=== PATIENT | female | born 1940 | race Caucasian/White ===

== ENCOUNTER 2017-10-16 16:01 | Inpatient (IN) | payer MEDICARE ==
[2017-10-16] VITALS (9 sets, daily range): BP systolic 141–201; BP diastolic 63–98; PULSE 52–80; RESP 16–24; TEMP 97.5–100.2; O2SAT 98–100
[2017-10-16] MEDS ORDERED: DOPamine INJ PREMIX 500 ML ONE (16:07)
--- NOTE | 2017-10-16 16:31 | PD ---
HPI Chief Complaint: Code Blue Time Seen by Provider: 16:21 Travel History International Travel<30 days: No Contact w/Intl Traveler<30days: No Traveled to known affect area: No History of Present Illness HPI Currently no family at bedside (PER SHE DOES NOT GO TO DOCTORS, SO NO MEDICAL HISTORY). This patient was brought in from [facility] where apparently the heard a loud cough and then a thump so the so the went to the other room where he saw his found on the floor. At this point he called 911 and started doing CPR. EVAC upon arriving started on IV intubated 7.5 ET tube placed at about 22 at the lip. Started giving epi followed by defibrillation followed by amiodarone followed by another epi followed by another defibrillation and then Ross and return of pulses. At that point patient was placed on external pacemakers. Upon arrival patient continues to have pulses being bagged via ET tube. [facility] Social History Tobacco Use: No Allergies-Medications (Allergen,Severity, Reaction): Coded Allergies: No Known Allergies (Unverified , 10/16/17) Reported Meds & Prescriptions Reported Meds & Active Scripts Active No Active Prescriptions or Reported Medications Review of Systems ROS Limitations: Clinical Condition, Intubated Physical Exam Exam Limitations: Clinical Condition Narrative GENERAL: IN FULL DISTRESS SKIN: COLD, CLAMMY, PALE HEAD: Atraumatic. Normocephalic. EYES: Pupils 2MM, NONREACTIVE TO LIGHT, NEG CORNEAL REFLEX, NEG GAG REFLEX ENT: No nasal bleeding or discharge. PALE Mucous membranes pink and moist. NECK: Trachea midline. No JVD. 7.5 MM ETT 22 AT LIP CARDIOVASCULAR: BRADYCARDI rate and REGULAR rhythm ON EXTERNAL PACER RESPIRATORY: No SPONTANEOUS BREATHS REQUIRING FULL BVM AND PLACED ON VENT GASTROINTESTINAL: Abdomen soft, non-tender, nondistended. MUSCULOSKELETAL: Extremities without clubbing, cyanosis, or edema. No obvious deformities. NEUROLOGICAL: GCS 3T, NO SIGNS OF RESPONSIVENESS. Data Data Last Documented VS Vital Signs Date Time Temp Pulse Resp B/P (MAP) Pulse Ox O2 Delivery O2 Flow Rate FiO2 10/16/17 18:04 50 10/16/17 17:50 99 10/16/17 16:27 Ventilator 10/16/17 16:22 70 16 Orders Orders Dopamine Inj Premix (Dopamine Inj Premix (10/16/17 16:07) Electrocardiogram (10/16/17 16:21) Complete Blood Count With Diff (10/16/17 16:21) Comprehensive Metabolic Panel (10/16/17 16:21) Troponin I (10/16/17 16:21) B-Type Natriuretic Peptide (10/16/17 16:21) Prothrombin Time / Inr (Pt) (10/16/17 16:21) Act Partial Throm Time (Ptt) (10/16/17 16:21) Lipase (10/16/17 16:21) Urinalysis - C+S If Indicated (10/16/17 16:21) Thyroid Stimulating Hormone (10/16/17 16:21) Chest, Single Ap (10/16/17 16:21) Iv Access Insert/Monitor (10/16/17 16:21) Ecg Monitoring (10/16/17 16:21) Oximetry (10/16/17 16:21) Urinary Catheter Insert/Apply (10/16/17 16:21) Consult Branch Or Department Chief Librarian (10/16/17 ) (Hub Use Only)Inp Phy Cons/Ref (10/16/17 ) Sodium Bicarbonate 8.4% Inj (Sodium Bica (10/16/17 17:00) Sodium Bicarbonate 8.4% Inj (Sodium Bica (10/16/17 17:00) Sodium Bicarbonate 8.4% Inj (Sodium Bica (10/16/17 17:00) Ct Brain W/O Iv Contrast(Rout) (10/16/17 16:53) Consult Cardiology (10/16/17 ) Admit To Inpatient (10/16/17 ) Code Status (10/16/17 17:35) Vital Signs (Adult) LON.Q1H (10/16/17 17:35) Activity Bed Rest (10/16/17 17:35) Polysomnographic Tech / Telemetry LON.Q8H (10/16/17 17:35) Intake + Output LON.Q8H (10/16/17 17:35) Diet Npo (10/16/17 Dinner) Sodium Chlor 0.9% 1000 Ml Inj (Ns 1000 M (10/16/17 17:35) Acetaminophen (Tylenol) (10/16/17 17:45) Albuterol-Ipratropium Neb (Duoneb Neb) (10/16/17 22:00) Albuterol Neb (Albuterol Neb) (10/16/17 17:45) Chlorhexidine 0.12% Liq (Peridex 0.12% L (10/16/17 20:00) Famotidine Inj (Pepcid Inj) (10/16/17 21:00) Complete Blood Count With Diff (10/17/17 06:00) Comprehensive Metabolic Panel (10/17/17 06:00) Troponin I (10/16/17 17:35) Troponin I (10/16/17 23:35) Magnesium (Mg) (10/16/17 17:35) Sputum Culture And Gram Stain (10/16/17 17:35) Chest, Single Ap (10/17/17 06:00) Echo 2d Comp With Doppler (10/16/17 ) Resp Ventilation- Volume (10/16/17 ) Arterial Blood Gas (Abg) (10/16/17 ) Scd Bilateral/Knee High LON.BID (10/16/17 17:35) Vahe Bilateral/Knee High LON.QSHIFT (10/16/17 18:00) ^ Initiate Protocol (10/16/17 17:35) Instruction (10/16/17 17:35) Misc Nursing Information (10/16/17 17:45) Chlorhexidine 2% Cloth (Chlorhexidine 2% (10/17/17 04:00) Chlorhexidine 2% Cloth (Chlorhexidine 2% (10/16/17 17:45) Mrsa Pcr Surveillance (10/16/17 17:35) Inpatient Certification (10/16/17 ) (Hub Use Only)Inp Phy Cons/Ref (10/16/17 ) Arterial Blood Gas (Abg) (10/16/17 16:31) Urine Culture (10/16/17 16:35) Sodium Bicarbonate 8.4% Inj (Sodium Bica (10/16/17 18:00) Water Sterile For I... W/Sodium Bicarbon (10/16/17 18:00) Admit Order (Ed Use Only) (10/16/17 18:06) Labs Laboratory Tests Test 10/16/17 16:31 10/16/17 16:35 Blood Gas Puncture Site RT FEMORAL Blood Gas Patient Temperature 98.6 Blood Gas HCO3 13 mmol/L Blood Gas Base Excess -13.6 mmol/L Blood Gas Oxygen Saturation 99 % Arterial Blood pH 7.20 Arterial Blood Partial Pressure CO2 34 mmHg Arterial Blood Partial Pressure O2 340 mmHG Arterial Blood Oxygen Content 14.7 Vol % Arterial Blood Carboxyhemoglobin 0.6 % Arterial Blood Methemoglobin 0.5 % Blood Gas Hemoglobin 10.0 G/DL Oxygen Delivery Device VENTILATOR Blood Gas Ventilator Setting AC/500/16/PEEP 5 Blood Gas Inspired Oxygen 100 % White Blood Count 3.5 TH/MM3 Red Blood Count 3.57 MIL/MM3 Hemoglobin 10.9 GM/DL Hematocrit 32.3 % Mean Corpuscular Volume 90.3 FL Mean Corpuscular Hemoglobin 30.5 PG Mean Corpuscular Hemoglobin Concent 33.8 % Red Cell Distribution Width 14.3 % Platelet Count 143 TH/MM3 Mean Platelet Volume 9.8 FL Neutrophils (%) (Auto) 38.6 % Lymphocytes (%) (Auto) 48.3 % Monocytes (%) (Auto) 12.9 % Eosinophils (%) (Auto) 0.0 % Basophils (%) (Auto) 0.2 % Neutrophils # (Auto) 1.3 TH/MM3 Lymphocytes # (Auto) 1.7 TH/MM3 Monocytes # (Auto) 0.4 TH/MM3 Eosinophils # (Auto) 0.0 TH/MM3 Basophils # (Auto) 0.0 TH/MM3 CBC Comment DIFF FINAL Differential Comment Prothrombin Time 11.6 SEC Prothromb Time International Ratio 1.1 RATIO Activated Partial Thromboplast Time 22.4 SEC Urine Color YELLOW Urine Turbidity HAZY Urine pH 6.0 Urine Specific Gerald 1.012 Urine Protein 300 mg/dL Urine Glucose (UA) 70 mg/dL Urine Ketones NEG mg/dL Urine Occult Blood MOD Urine Nitrite NEG Urine Bilirubin NEG Urine Urobilinogen LESS THAN 2.0 MG/DL Urine Leukocyte Esterase NEG Urine RBC 7 /hpf Urine WBC 23 /hpf Urine Squamous Epithelial Cells 2 /hpf Urine Bacteria OCC /hpf Urine Hyaline Casts 37 /lpf Urine Granular Casts 4 /lpf Urine Mucus FEW /lpf Microscopic Urinalysis Comment CATH-CULTURE IND Blood Urea Nitrogen 17 MG/DL Creatinine 1.48 MG/DL Random Glucose 236 MG/DL Total Protein 6.3 GM/DL Albumin 3.3 GM/DL Calcium Level 7.9 MG/DL Alkaline Phosphatase 91 U/L Aspartate Amino Transf (AST/SGOT) 112 U/L Alanine Aminotransferase (ALT/SGPT) 108 U/L Total Bilirubin 0.6 MG/DL Sodium Level 139 MEQ/L Potassium Level 4.7 MEQ/L Chloride Level 107 MEQ/L Carbon Dioxide Level 15.3 MEQ/L Anion Gap 17 MEQ/L Estimat Glomerular Filtration Rate 34 ML/MIN Troponin I 0.41 NG/ML B-Type Natriuretic Peptide 1048 PG/ML Lipase 122 U/L Thyroid Stimulating Hormone 3rd Gen 10.800 uIU/ML MDM Medical Decision Making Medical Screen Exam Complete: Yes Emergency Medical Condition: Yes Medical Record Reviewed: Yes Interpretation(s) Rhythm strips showed a bradycardia down to about 30 whenever the milliamps were started to be decreased on the external pacer. Despite the increasE ON dopamine Differential Diagnosis S/P ARREST Narrative Course Patient connected to the event AC 16 600 100% FiO2, started on dopamine has 2 large-bore IVs antecubital, currently dopamine at 7 mics per KG per minute. Maintaining a blood pressure in the 130s heart rate in the 69-70 range on an external pacer which matches with her radial pulses. Critical Care Narrative CRITICAL CARE NOTE: With evaluation of the patient, labs, EKG, receipt of radiologic studies, administration of medications, reevaluation the patient and discussion of the patient with the admitting physicians, the total critical care time was [30] minutes. Time to perform other separately billable procedures was not included in the critical care time. Of particular note the pacer is set at 70 bpm, currently at 120 mA Physician Communication Physician Communication As of [address] Lugo to return call as cabinetmaker maintenance. Diagnosis Primary Impression: S/P ARREST (CODE COOL) Admitting Information Admitting Physician Requests: Admit Scripts No Active Prescriptions or Reported Meds Trevor Zavala MD Oct 16, 2017 16:30
[2017-10-16] MEDS ORDERED: SODIUM BICARBONATE 8.4% INJ 50 MEQ/50 ML SYR IV PUSH ONE ×4 (17:00→18:00)
--- NOTE | 2017-10-16 17:05 | RADRPT ---
EXAM DATE/TIME: 10/16/2017 16:39 [facility] COMPARISON: No previous studies available for comparison. INDICATIONS : Response Of Spontaneous Circulation. MEDICAL HISTORY : None. SURGICAL HISTORY : None. ENCOUNTER: Initial ACUITY: 1 day PAIN SCORE: Non-responsive. LOCATION: Bilateral chest FINDINGS: ET tube in and nasogastric tube in good position. Compensated cardiomegaly with minimal parenchymal changes left base. Negative for pneumothorax. CONCLUSION: Compensated cardiomegaly with minimal parenchymal changes left base. Julio Scruggs MD FACR on October 16, 2017 at 17:02 Board Certified Radiologist. This report was verified electronically.
[2017-10-16] MEDS ORDERED: SODIUM CHLOR 0.9% 1000 ML INJ 1,000 ML IV SCH (17:35)
[2017-10-16] MEDS ORDERED: CHLORHEXIDINE GLUCONATE 2 % 1 PACK (2 CLOTHS) TOP PRN (17:45)
[2017-10-16] MEDS ORDERED: MISCELLANEOUS NURSING INFORMATION XX SCH (17:45)
[2017-10-16] MEDS ORDERED: ACETAMINOPHEN 325 MG TAB PO PRN (17:45)
[2017-10-16] MEDS ORDERED: RESP: ALBUTEROL 2.5 MG/3 ML NEB (PRN) INH (17:45)
[2017-10-16 17:48] LABS: AUTOMATED NEUTROPHIL # 1.3 TH/MM3 (1.8-7.7); BASOPHIL % 0.2 % (0.0-2.0); HEMATOCRIT 32.3 % (35.0-46.0); HEMOGLOBIN 10.9 GM/DL (11.6-15.3); LYMPH % 48.3 % (9.0-44.0); LYMPHOCYTE # 1.7 TH/MM3 (1.0-4.8); MEAN CELL VOLUME 90.3 FL (80.0-100.0); MEAN CORPUSCULAR HEMOGLOBIN 30.5 PG (27.0-34.0); MEAN CORPUSCULAR HGB CONC 33.8 % (32.0-36.0); MEAN PLATELET VOLUME 9.8 FL (7.0-11.0); MONO % 12.9 % (0.0-8.0); MONOCYTE # 0.4 TH/MM3 (0-0.9); NEUT % 38.6 % (16.0-70.0); PLATELET COUNT 143 TH/MM3 (150-450); RED BLOOD COUNT 3.57 MIL/MM3 (4.00-5.30); RED CELL DISTRIBUTION WIDTH 14.3 % (11.6-17.2); WHITE BLOOD COUNT 3.5 TH/MM3 (4.0-11.0)
[2017-10-16 17:52] LABS: INTERNATIONAL NORMALIZED RATIO 1.1 RATIO; PROTHROMBIN TIME - PATIENT 11.6 SEC (9.8-11.6)
[2017-10-16 17:55] LABS: BACTERIA, URINE OCC /hpf; BILIRUBIN, URINE NEG (NEG); BLOOD, URINE MOD (NEG); GLUCOSE,URINE 70 mg/dL (NEG); HYALINE CAST, URINE 37 /lpf (RARE); KETONE, URINE NEG (NEG); MUCUS URINE FEW /lpf (OCC); NITRITE,URINE NEG (NEG); SQUAMOUS EPITHELIAL CELL URINE 2 /hpf (0-5); URINE COLOR YELLOW (YELLW/STRAW); URINE LEUKOCYTE ESTERASE NEG (NEG)
[2017-10-16 17:58] LABS: ALBUMIN 3.3 GM/DL (3.4-5.0); ALT (GPT) 108 U/L (10-53); AST (GOT) 112 U/L (15-37); BICARBONATE 15.3 MEQ/L (21.0-32.0); BLOOD UREA NITROGEN 17 MG/DL (7-18); CALCIUM 7.9 MG/DL (8.5-10.1); CHLORIDE 107 MEQ/L (98-107); CREATININE 1.48 MG/DL (0.50-1.00); GLOMERULAR FILTRATION RATE 34 ML/MIN (>89); GLUCOSE,RANDOM 236 MG/DL (74-106); SODIUM (NA) 139 MEQ/L (136-145)
[2017-10-16] MEDS ORDERED: SODIUM BICARBONATE 8.4% INJ 150 MEQ in WATER STERILE FOR INJ 850 ML IV SCH (18:00)
--- NOTE | 2017-10-16 18:01 | RADRPT ---
EXAM DATE/TIME: 10/16/2017 17:29 [facility] COMPARISON: No previous studies available for comparison. INDICATIONS : S/P arrest. RADIATION DOSE: 56.35 CTDIvol (mGy) ; Patient motion MEDICAL HISTORY : Non-responsive. SURGICAL HISTORY : Non-responsive. ENCOUNTER: Initial ACUITY: 1 day PAIN SCALE: Non-responsive LOCATION: cranial TECH NOTE: Patient on vent, being paced. TECHNIQUE: Multiple contiguous axial images were obtained of the head. Using automated exposure control and adj ustment of the mA and/or kV according to patient size, radiation dose was kept as low as reasonably a chievable to obtain optimal diagnostic quality images. DICOM format image data is available electro nically for review and comparison. FINDINGS: CEREBRUM: Severe motion artifact significantly limits anatomic detail. No obvious acute intracranial process or . POSTERIOR FOSSA: The cerebellum and brainstem are grossly intact again, with motion limitations. The 4th ventricle is midline. The cerebellopontine angle is unremarkable. EXTRACRANIAL: The visualized portion of the orbits is intact. SKULL: The calvaria is intact. No evidence of skull fracture. CONCLUSION: 1. Limited exam due to motion artifact throughout. 2. No obvious acute intracranial process, however. Alberto Rivera MD on October 16, 2017 at 17:57 Board Certified Radiologist. This report was verified electronically.
[2017-10-16 18:07] LABS: ALKALINE PHOSPHATASE 91 U/L (45-117); TOTAL BILIRUBIN ADULT 0.6 MG/DL (0.2-1.0); TOTAL PROTEIN 6.3 GM/DL (6.4-8.2); TROPONIN I 0.41 NG/ML (0.02-0.05)
[2017-10-16] MEDS ORDERED: levETIRAcetam INJ 100 ML IV ONE (19:45)
[2017-10-16] MEDS ORDERED: MIDAZOLAM 100 MG/100 ML INJ 100 ML IV PRN (19:45)
[2017-10-16] MEDS ORDERED: CHLORHEXIDINE 0.12% (ORAL KIT) 15 ML CUP MT SCH (20:00)
--- NOTE | 2017-10-16 20:19 | HHI.HP ---
HPI Service Critical Care Medicine Primary Care Physician Unknown Admission Diagnosis S/P CARDIAC ARREST, ROSC Diagnosis: Travel History International Travel<30 Days: No Contact w/Intl Traveler <30 Da: No Traveled to Known Affected Are: No History of Present Illness 77-year-old unfortunate female suffered cardiac arrest at home. Her heard loud cough and then a thump so he went to the other room where he saw his found on the floor. At this point he called 911 and started doing CPR. EVAC upon arriving started on IV, intubated 7.5 ET tube. They have started giving epinephrine followed by defibrillation followed by amiodarone followed by another epi followed by another defibrillation and then return of pulses. At that point patient was placed on external pacemakers. Review of Systems ROS Unobtainable patient is comatose and intubated Past Family Social History Allergies: Coded Allergies: No Known Allergies (Unverified , 10/16/17) Past Medical History No significant past medical history Past Surgical History Unable to obtain Reported Medications Reported Meds & Active Scripts Active No Active Prescriptions or Reported Medications Family History Unable to obtain Social History Negative for tobacco, alcohol, or illicit drug abuse Physical Exam Vital Signs Vital Signs Date Time Temp Pulse Resp B/P (MAP) Pulse Ox O2 Delivery O2 Flow Rate FiO2 10/16/17 19:31 100.2 63 16 181/74 (109) 100 Ventilator 16.00 50 10/16/17 19:00 48 10/16/17 19:00 52 16 201/98 (132) 100 Ventilator 50 10/16/17 18:04 50 10/16/17 17:50 99 100 10/16/17 17:45 70 24 196/74 (114) 100 Ventilator 50 10/16/17 17:30 46 10/16/17 17:25 44 10/16/17 17:10 80 18 173/83 (113) 98 Ventilator 50 10/16/17 16:50 97.5 80 16 162/83 (109) 100 Ventilator 100 10/16/17 16:35 100 10/16/17 16:27 100 Ventilator 100 10/16/17 16:22 40 10/16/17 16:22 70 16 141/63 (89) 99 Ventilator 100 10/16/17 16:22 80 16 99 Ventilator 100 10/16/17 16:20 99 100 2/9/18 16:20 99 100 Physical Exam GENERAL: Elderly female comatose intubated and externally paced SKIN: Warm and dry. HEAD: Normocephalic. EYES: No scleral icterus. No injection or drainage. NECK: Supple, trachea midline. No JVD or lymphadenopathy. CARDIOVASCULAR: Regular rate and rhythm without murmurs, gallops, or rubs. RESPIRATORY: Breath sounds equal bilaterally. No accessory muscle use. GASTROINTESTINAL: Abdomen soft, non-tender, nondistended. MUSCULOSKELETAL: No cyanosis, or edema. BACK: Nontender without obvious deformity. NEURO EXAM: GCS: 7 Mental Status: The patient is intubated, she briskly withdraws to pain in all 4 extremities. Pupils are symmetrical 2 mm and sluggishly reactive Laboratory Laboratory Tests Test 10/16/17 16:31 10/16/17 16:35 Blood Gas Puncture Site RT FEMORAL Blood Gas Patient Temperature 98.6 Blood Gas HCO3 13 Blood Gas Base Excess -13.6 Blood Gas Oxygen Saturation 99 Arterial Blood pH 7.20 Arterial Blood Partial Pressure CO2 34 Arterial Blood Partial Pressure O2 340 Arterial Blood Oxygen Content 14.7 Arterial Blood Carboxyhemoglobin 0.6 Arterial Blood Methemoglobin 0.5 Blood Gas Hemoglobin 10.0 Oxygen Delivery Device VENTILATOR Blood Gas Ventilator Setting AC/500/16/PEEP 5 Blood Gas Inspired Oxygen 100 White Blood Count 3.5 Red Blood Count 3.57 Hemoglobin 10.9 Hematocrit 32.3 Mean Corpuscular Volume 90.3 Mean Corpuscular Hemoglobin 30.5 Mean Corpuscular Hemoglobin Concent 33.8 Red Cell Distribution Width 14.3 Platelet Count 143 Mean Platelet Volume 9.8 Neutrophils (%) (Auto) 38.6 Lymphocytes (%) (Auto) 48.3 Monocytes (%) (Auto) 12.9 Eosinophils (%) (Auto) 0.0 Basophils (%) (Auto) 0.2 Neutrophils # (Auto) 1.3 Lymphocytes # (Auto) 1.7 Monocytes # (Auto) 0.4 Eosinophils # (Auto) 0.0 Basophils # (Auto) 0.0 CBC Comment DIFF FINAL Differential Comment Prothrombin Time 11.6 Prothromb Time International Ratio 1.1 Activated Partial Thromboplast Time 22.4 Urine Color YELLOW Urine Turbidity HAZY Urine pH 6.0 Urine Specific [place] 1.012 Urine Protein 300 Urine Glucose (UA) 70 Urine Ketones NEG Urine Occult Blood MOD Urine Nitrite NEG Urine Bilirubin NEG Urine Urobilinogen LESS THAN 2.0 Urine Leukocyte Esterase NEG Urine RBC 7 Urine WBC 23 Urine Squamous Epithelial Cells 2 Urine Bacteria OCC Urine Hyaline Casts 37 Urine Granular Casts 4 Urine Mucus FEW Microscopic Urinalysis Comment CATH-CULTURE IND Blood Urea Nitrogen 17 Creatinine 1.48 Random Glucose 236 Total Protein 6.3 Albumin 3.3 Calcium Level 7.9 Alkaline Phosphatase 91 Aspartate Amino Transf (AST/SGOT) 112 Alanine Aminotransferase (ALT/SGPT) 108 Total Bilirubin 0.6 Sodium Level 139 Potassium Level 4.7 Chloride Level 107 Carbon Dioxide Level 15.3 Anion Gap 17 Estimat Glomerular Filtration Rate 34 Troponin I 0.41 B-Type Natriuretic Peptide 1048 Lipase 122 Thyroid Stimulating Hormone 3rd Gen 10.800 Date/Time Source Procedure Growth Status 10/16/17 16:35 Urine Clean Catch Urine Culture Pending Received Result Diagram: 10/16/17 1635 10/16/17 1635 Imaging Last [address] 10/16/17 1653 Signed Impressions: Service Date/Time: Monday, October 16, 2017 17:29 - CONCLUSION: 1. Limited exam due to motion artifact throughout. 2. No obvious acute intracranial process, however. Alberto Rivera MD Chest X-Ray 10/16/17 1621 Signed Impressions: Service Date/Time: Monday, October 16, 2017 16:39 - CONCLUSION: Compensated cardiomegaly with minimal parenchymal changes left base. Julio Scruggs MD FACR Septic Shock Reassessment Septic shock perfusion: reassessment completed Caprini VTE Risk Assessment Caprini VTE Risk Assessment: Mod/High Risk (score >= 2) Caprini Risk Assessment Model Point Value = 1 Point Value = 2 Point Value = 3 Point Value = 5 Age 41-60 Minor surgery BMI > 25 kg/m2 Swollen legs Varicose veins or History of unexplained or recurrent spontaneous Oral contraceptives or hormone replacement Sepsis (< 1 month) Serious lung disease, including pneumonia (< 1 month) Abnormal pulmonary function Acute myocardial infarction Congestive heart failure (< 1 month) History of inflammatory bowel disease Medical patient at bed rest Age 61-74 Arthroscopic surgery Major open surgery (> 45 min) Laparoscopic surgery (> 45 min) Malignancy Confined to bed (> 72 hours) Immobilizing plaster cast Central venous access Age >= 75 History of VTE Family history of VTE Factor V Leiden Prothrombin [id number] Lupus anticoagulant Anticardiolipin antibodies Elevated serum homocysteine Heparin-induced thrombocytopenia Other congenital or acquired thrombophilia Stroke (< 1 month) Elective arthroplasty Hip, pelvis, or leg fracture Acute spinal cord injury (< 1 month) Prophylaxis Regimen Total Risk Factor Score Risk Level Prophylaxis Regimen 0-1 Low Early ambulation 2 Moderate Order ONE of the following: *Sequential Compression Device (SCD) *Heparin 5000 units SQ BID 3-4 Higher Order ONE of the following medications: *Heparin 5000 units SQ TID *Enoxaparin/Lovenox 40 mg SQ daily (WT < 150 kg, CrCl > 30 mL/min) *Enoxaparin/Lovenox 30 mg SQ daily (WT < 150 kg, CrCl > 10-29 mL/min) *Enoxaparin/Lovenox 30 mg SQ BID (WT < 150 kg, CrCl > 30 mL/min) AND/OR *Sequential Compression Device (SCD) 5 or more Highest Order ONE of the following medications: *Heparin 5000 units SQ TID (Preferred with Epidurals) *Enoxaparin/Lovenox 40 mg SQ daily (WT < 150 kg, CrCl > 30 mL/min) *Enoxaparin/Lovenox 30 mg SQ daily (WT < 150 kg, CrCl > 10-29 mL/min) *Enoxaparin/Lovenox 30 mg SQ BID (WT < 150 kg, CrCl > 30 mL/min) AND *Sequential Compression Device (SCD) Assessment and Plan Assessment and Plan Respiratory failure - Continue mechanical ventilation - Intubated for an airway protection - No weaning until neurologically improved and hemodynamically stable - Vent bundle - DuoNeb scheduled and when necessary Cardiac arrest - V. fib arrest - Likely ACS - Externally paced due to AV block - Cardiology appreciated - Not a candidate for coiling protocol due to severe hemodynamic instability and DNR order per family request - Continue amiodarone and telemetry monitoring - Further workup if neurologically improved Acute kidney injury - Unknown baseline - IV fluid resuscitation - Strict I's and O's - Monitor creatinine - Electrolytes replacement per ICU protocol DVT GI prophylaxis - Teds SCDs - Subcutaneous heparin - Pepcid Critical Care: The total critical care time was 35 minutes. Time to perform other separately billable procedures was not included in the critical care time. Gage Reagan MD Oct 16, 2017 20:19
--- NOTE | 2017-10-16 20:22 | PD ---
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 fib; family at bedside and state that they do NOT want any interventions no medications no chemicals no compressions and no electrical cardioversion/defibrillation. SKIN: Warm and cool and pale. HEAD: Normocephalic. EYES: No scleral icterus. No injection or drainage. Pupils nonreactive and 4 mm NECK: Supple, trachea midline. No JVD or lymphadenopathy. No palpable carotid pulse. CARDIOVASCULAR: No heart sounds to auscultation. No palpable radial and femoral pulses. RESPIRATORY: No breath sounds to auscultation no spontaneous respirations Data Data Last Documented VS Vital Signs Date Time Temp Pulse Resp B/P (MAP) Pulse Ox O2 Delivery O2 Flow Rate FiO2 10/16/17 18:04 50 10/16/17 17:50 99 10/16/17 17:45 70 24 196/74 (114) Ventilator 10/16/17 16:50 97.5 Orders Orders Dopamine Inj Premix (Dopamine Inj Premix (10/16/17 16:07) Electrocardiogram (10/16/17 16:21) Complete Blood Count With Diff (10/16/17 16:21) Comprehensive Metabolic Panel (10/16/17 16:21) Troponin I (10/16/17 16:21) B-Type Natriuretic Peptide (10/16/17 16:21) Prothrombin Time / Inr (Pt) (10/16/17 16:21) Act Partial Throm Time (Ptt) (10/16/17 16:21) Lipase (10/16/17 16:21) Urinalysis - C+S If Indicated (10/16/17 16:21) Thyroid Stimulating Hormone (10/16/17 16:21) Chest, Single Ap (10/16/17 16:21) Iv Access Insert/Monitor (10/16/17 16:21) Ecg Monitoring (10/16/17 16:21) Oximetry (10/16/17 16:21) Urinary Catheter Insert/Apply (10/16/17 16:21) Consult Predictive Maintenance Specialist (10/16/17 ) (Hub Use Only)Inp Phy Cons/Ref (10/16/17 ) Sodium Bicarbonate 8.4% Inj (Sodium Bica (10/16/17 17:00) Sodium Bicarbonate 8.4% Inj (Sodium Bica (10/16/17 17:00) Sodium Bicarbonate 8.4% Inj (Sodium Bica (10/16/17 17:00) Ct Brain W/O Iv Contrast(Rout) (10/16/17 16:53) Consult Cardiology (10/16/17 ) Admit To Inpatient (10/16/17 ) Code Status (10/16/17 17:35) Vital Signs (Adult) LON.Q1H (10/16/17 17:35) Activity Bed Rest (10/16/17 17:35) Animal Humane Agent Supervisor / Telemetry LON.Q8H (10/16/17 17:35) Intake + Output LON.Q8H (10/16/17 17:35) Diet Npo (10/16/17 Dinner) Sodium Chlor 0.9% 1000 Ml Inj (Ns 1000 M (10/16/17 17:35) Acetaminophen (Tylenol) (10/16/17 17:45) Albuterol-Ipratropium Neb (Duoneb Neb) (10/16/17 22:00) Albuterol Neb (Albuterol Neb) (10/16/17 17:45) Chlorhexidine 0.12% Liq (Peridex 0.12% L (10/16/17 20:00) Famotidine Inj (Pepcid Inj) (10/16/17 21:00) Complete Blood Count With Diff (10/17/17 06:00) Comprehensive Metabolic Panel (10/17/17 06:00) Troponin I (10/16/17 17:35) Troponin I (10/16/17 23:35) Magnesium (Mg) (10/16/17 17:35) Sputum Culture And Gram Stain (10/16/17 17:35) Chest, Single Ap (10/17/17 06:00) Echo 2d Comp With Doppler (10/16/17 ) Resp Ventilation- Volume (10/16/17 ) Arterial Blood Gas (Abg) (10/16/17 ) Scd Bilateral/Knee High LON.BID (10/16/17 17:35) Vahe Bilateral/Knee High LON.QSHIFT (10/16/17 18:00) ^ Initiate Protocol (10/16/17 17:35) Instruction (10/16/17 17:35) [facility] [place] (10/16/17 17:45) Chlorhexidine 2% Cloth (Chlorhexidine 2% (10/17/17 04:00) Chlorhexidine 2% Cloth (Chlorhexidine 2% (10/16/17 17:45) Mrsa Pcr Surveillance (10/16/17 17:35) Inpatient Certification (10/16/17 ) (Hub Use Only)Inp Phy Cons/Ref (10/16/17 ) Arterial Blood Gas (Abg) (10/16/17 16:31) Urine Culture (10/16/17 16:35) Sodium Bicarbonate 8.4% Inj (Sodium Bica (10/16/17 18:00) Water Sterile For I... W/Sodium Bicarbon (10/16/17 18:00) Admit Order (Ed Use Only) (10/16/17 18:06) Labs Laboratory Tests Test 10/16/17 16:31 10/16/17 16:35 Blood Gas Puncture Site RT FEMORAL Blood Gas Patient Temperature 98.6 Blood Gas HCO3 13 mmol/L Blood Gas Base Excess -13.6 mmol/L Blood Gas Oxygen Saturation 99 % Arterial Blood pH 7.20 Arterial Blood Partial Pressure CO2 34 mmHg Arterial Blood Partial Pressure O2 340 mmHG Arterial Blood Oxygen Content 14.7 Vol % Arterial Blood Carboxyhemoglobin 0.6 % Arterial Blood Methemoglobin 0.5 % Blood Gas Hemoglobin 10.0 G/DL Oxygen Delivery Device VENTILATOR Blood Gas Ventilator Setting AC/500/16/PEEP 5 Blood Gas Inspired Oxygen 100 % White Blood Count 3.5 TH/MM3 Red Blood Count 3.57 MIL/MM3 Hemoglobin 10.9 GM/DL Hematocrit 32.3 % Mean Corpuscular Volume 90.3 FL Mean Corpuscular Hemoglobin 30.5 PG Mean Corpuscular Hemoglobin Concent 33.8 % Red Cell Distribution Width 14.3 % Platelet Count 143 TH/MM3 Mean Platelet Volume 9.8 FL Neutrophils (%) (Auto) 38.6 % Lymphocytes (%) (Auto) 48.3 % Monocytes (%) (Auto) 12.9 % Eosinophils (%) (Auto) 0.0 % Basophils (%) (Auto) 0.2 % Neutrophils # (Auto) 1.3 TH/MM3 Lymphocytes # (Auto) 1.7 TH/MM3 Monocytes # (Auto) 0.4 TH/MM3 Eosinophils # (Auto) 0.0 TH/MM3 Basophils # (Auto) 0.0 TH/MM3 CBC Comment DIFF FINAL Differential Comment Prothrombin Time 11.6 SEC Prothromb Time International Ratio 1.1 RATIO Activated Partial Thromboplast Time 22.4 SEC Urine Color YELLOW Urine Turbidity HAZY Urine pH 6.0 Urine Specific [place] 1.012 Urine Protein 300 mg/dL Urine Glucose (UA) 70 mg/dL Urine Ketones NEG mg/dL Urine Occult Blood MOD Urine Nitrite NEG Urine Bilirubin NEG Urine Urobilinogen LESS THAN 2.0 MG/DL Urine Leukocyte Esterase NEG Urine RBC 7 /hpf Urine WBC 23 /hpf Urine Squamous Epithelial Cells 2 /hpf Urine Bacteria OCC /hpf Urine Hyaline Casts 37 /lpf Urine Granular Casts 4 /lpf Urine Mucus FEW /lpf Microscopic Urinalysis Comment CATH-CULTURE IND Blood Urea Nitrogen 17 MG/DL Creatinine 1.48 MG/DL Random Glucose 236 MG/DL Total Protein 6.3 GM/DL Albumin 3.3 GM/DL Calcium Level 7.9 MG/DL Alkaline Phosphatase 91 U/L Aspartate Amino Transf (AST/SGOT) 112 U/L Alanine Aminotransferase (ALT/SGPT) 108 U/L Total Bilirubin 0.6 MG/DL Sodium Level 139 MEQ/L Potassium Level 4.7 MEQ/L Chloride Level 107 MEQ/L Carbon Dioxide Level 15.3 MEQ/L Anion Gap 17 MEQ/L Estimat Glomerular Filtration Rate 34 ML/MIN Troponin I 0.41 NG/ML B-Type Natriuretic Peptide 1048 PG/ML Lipase 122 U/L Thyroid Stimulating Hormone 3rd Gen 10.800 uIU/ML MDM Medical Record Reviewed: Yes Supervised Visit with JON: No Differential Diagnosis Cardiac arrest, arrhythmia, ventricular tachycardia, ventricular fibrillation, OR, cva, aortic dissection/aneurysm Narrative Course Post arrest resuscitation patient with family at bedside was noted by nursing at bedside to have rhythm deteriorated to ventricular tachycardia and I was asked to the bedside at 19: 47 with and family at the bedside and nursing stating the family had just decided that they did not want any intervention, that she is to be a DO NOT RESUSCITATE. I asked the , Matty Ann, specifically if he wanted us to intervene due to this new rhythm and acute deterioration that would not sustain life if we did not intervene. The said "No, she does not want to have anything done; she has said so 50 times"; she is not to be resuscitated; per "it is her wish" and his wish that we do not intervene; he does not want us to administer any medications, he does not want us to defibrillate her, he does not want us to do chest compressions; he wants us to let her go. Family members around the bedside. @ 19:48 A call was placed to the ceo & board director who had admitted the patient, Dr. Reagan. @ 19:51 Dr. Reagan aware and recommended that the ventilator be discontinued; vent d/c'd at 19:54 by respiratory therapist and the patient was pronounced at 20:02 p.m. by me/the undersigned after examined: unresponsive , GCS3, no spontaneous respirations, no heart sounds to auscultation, no palpable carotid or femoral pulses, pupils nonreactive at 4 mm, and no response to painful stimuli, vehicle monitor technician asystole. Diagnosis Primary Impression: S/P ARREST (CODE COOL) Additional Impressions: Cardiac arrest, cause unspecified Ventricular fibrillation Scripts No Active Prescriptions or Reported Meds Disposition: 20 SENT TO MED EXAMINR Condition: Herminia Linares MD Oct 16, 2017 20:22
[2017-10-16] MEDS ORDERED: FAMOTIDINE 20 MG/2 ML VIAL IV PUSH SCH (21:00)
[2017-10-16] MEDS ORDERED: RESP: ALBUTEROL 2.5 MG/IPRATROPIUM 0.5 MG NEB (SCH) NEB (22:00)
[2017-10-17] MEDS ORDERED: CHLORHEXIDINE GLUCONATE 2 % 1 PACK (2 CLOTHS) TOP SCH (04:00)
--- NOTE | 2017-10-17 07:24 | MB ---
cc: MATTHEW MEDINA DO DATE OF CONSULTATION 10/16/2017 REASON FOR CONSULTATION Cardiac arrest. HISTORY OF PRESENT ILLNESS Bria Ann is a 77-year-old female who was brought in by EMS due to cardiac arrest on October 16, 2017. The patient is intubated and so history is taken from the family. Apparently the heard a lot of cough and then a thump. He went to the other room and found his on the floor. At that point he called 911 and started doing CPR. Upon EMS arrival which was around five minutes later the patient was intubated and ended up getting defibrillated and placed on amiodarone with return of spontaneous pulses. At that point the patient was placed on external pacers and was bagged via the ET tube until arrival at the hospital. On arrival the patient was seen by critical care and I was asked to see the patient urgently due to the cardiac arrest. In speaking to the family Ms. Ann had no real medical history or medical problems in the past. She never went to doctors. She never complained of chest pain or shortness of breath. They stated that over the past two weeks or so that she had been feeling weakness, like her legs were going to give out from under her. PAST MEDICAL HISTORY Family denies any past medical history. PAST SURGICAL HISTORY Family denies. ALLERGIES No known drug allergies. MEDICATIONS Family denies. FAMILY HISTORY Family denies premature coronary artery disease or sudden cardiac within the family. SOCIAL HISTORY Denies tobacco, alcohol or drug abuse. REVIEW OF SYSTEMS Unable to obtain secondary to the patient's current state. Before the episode the family states that the patient was feeling weak like her knees were going to give for the past week or two, but otherwise no significant symptoms. PHYSICAL EXAMINATION VITAL SIGNS: Temperature 97.5, heart rate 80, blood pressure 162/83, respirations 16, pulse ox 100% on the ventilator. GENERAL: In general the patient is an elderly female but appears her stated age. HEENT: Pupils are equal and reactive. ET tube in place. Mucous membranes moist. NECK: Supple. No JVD noted. Carotid upstroke is brisk in nature. HEART: Regular rate and rhythm. Positive first and second heart sounds with no murmurs, gallops or rubs. LUNGS: Decreased breath sounds bilaterally with no wheezes, rales or rhonchi. ABDOMEN: Soft, nontender, nondistended. No organomegaly noted. EXTREMITIES: No clubbing, cyanosis or edema. Femoral and distal pulses are intact bilaterally. NEUROLOGIC: GCS 3. Difficult to tell if she has withdrawal from pain as she is being externally paced. SKIN: Warm, dry and intact. MUSCULOSKELETAL: Osteopathically unable to obtain. LABORATORY Hemoglobin 10.9, hematocrit 32.9, platelets 143. ABG pH 7.2, PCO2 34, PO 340, HCO3 13. Potassium 4.7, BUN 17, creatinine 1.48. AST 112, ALT 108. Troponin 0.40. BNP 1048. TSH 10.8. IMPRESSION 1. Cardiac arrest requiring epinephrine, amiodarone and defibrillation. 2. Significant bradycardia requiring external pacer as well as dopamine at 7 mcg/kg per minute. 3. NSTEMI, possible type 1 versus type 2 secondary to chest compressions as well as cardiac arrest. 4. Elevated creatinine and possible acute kidney injury versus chronic kidney disease. 5. Elevated liver function tests. 6. Anemia. 7. Metabolic acidosis. 8. Ventilator-dependent respiratory failure. RECOMMENDATIONS 1. Ms. Ann presented with a cardiac arrest and has had return of spontaneous circulation. The patient was initially given epinephrine and then went into ventricular fibrillation and was cardioverted and started on amiodarone. 2. While in the emergency room she has had significant bradycardia and has been externally paced. I have turned down the pacer to a backup rate of 40 and she has underlying rate of 42-48, and on the dopamine having a blood pressure of 160/83. 3. Dr. Reagan and myself discussed the patient's current state as well as the patient's wishes extensively with the family. The group of seven family members all agree that she would not want any life-sustaining support. They even stated that she would not want to be in the state that she is now. We explained that after cardiac arrest it would be appropriate to at least give her 24 hours to see if she responds neurologically. The family is willing to do that but they want her to be a [id number]. Dr. Reagan and myself explained this meant that if her heart were to stop or any other problems that this would not be treated and they were understanding of that and stated that this would be her wishes as she has explained this to them many times. 4. She currently has an underlying rate in the 40s as well as a blood pressure capable of supplying circulation. Would opt to avoid placing a temporary pacer, specifically with the family's wishes of deciding in the next 24 hours if there is any change neurologically. 5. I discussed this with Dr. Reagan and if at any time the patient has difficulty with external pacing or need of a temporary pacemaker we will place it at that time. 6. Further recommendations will be made based on the hospital course. Thank you for allowing me to see Alysha Ann. If there are any questions please do not hesitate to call. Matthew Medina DO VGP/BT /11:50 PM /6:53 AM
--- NOTE | 2017-10-17 23:56 | EKG ---
Date Performed: 10/16/2017 Time Performed: 17:07:23 PTAGE: 77 years EKG: Paced rhythm Unable to determine underlying rhythm NO PREVIOUS TRACING DOCTOR: Matthew Gonzales Interpretating Date/Time 10/17/2017 23:55:58
== END 2017-10-16 23:18 | disposition expired ==
LOC: NEPC 16:01 → NEDA 18:07
PROVIDERS: ADMIT Internal Medicine; ATTEND Internal Medicine
PROC: 5A1935Z Respiratory Ventilation, Less than 24 Consecutive Hours (ICD-10-PCS; principal; 2017-10-16)
DX: I49.01 Ventricular fibrillation (principal); J96.90 Respiratory failure, unspecified, unspecified whether with hypoxia or hypercapnia; I21.4 Non-ST elevation (NSTEMI) myocardial infarction; N17.9 Acute kidney failure, unspecified; E87.2 Acidosis; Z99.11 Dependence on respirator [ventilator] status; I46.9 Cardiac arrest, cause unspecified; I44.30 Unspecified atrioventricular block; I47.2 Ventricular tachycardia; R53.1 Weakness; D64.9 Anemia, unspecified; Z66 Do not resuscitate
CPT/HCPCS: 36600; 51702; 70450; 71045; 80053; 81001; 82805; 83690; 83880; 84443; 84484; 85025; 85610; 85730; 87086; 93005; 94002; 96374; J1265